=== PATIENT | male | born 1980 | race Caucasian/White ===

== ENCOUNTER → 2016-05-10 | Outpatient (CLI) | payer OTHER ==
--- NOTE | 2016-05-10 21:45 | MR ---
MRI CERVICAL SPINE: CLINICAL HISTORY: Cervical spine radiculopathy, cervicalgia, and neck muscle spasm all per order. Hea daches with neck pain causing tingling in both hands for 4 months per patient. TECHNIQUE: Multiplanar, multisequence imaging of the cervical spine is performed without and with IV contrast, 16 cc of gadolinium was given intravenously. COMPARISON: None. FINDINGS: Sagittal images of the cervical spine show the craniocervical junction to appear within nor mal limits. The cervical and upper thoracic spinal cord is normal in course, caliber, and signal. V ertebral alignment is anatomic. There is mild disc space narrowing C4-C5 level otherwise the vertebr al body and intravertebral disk heights are normal. Posterior disc herniations are seen at C3-C4 and C4-C5 levels on sagittal images. The bone marrow signal intensity is within normal limits. No suspici ous postcontrast enhancement is seen. No significant spurring is noted. Axial images show the C2-C3 level to appear within normal limits. Axial images at C3-C4 level show focal left paracentral disc protrusion effacing anterolateral thecal sac and axial image 39, bilateral neural foramina remain patent. Axial images at C4-C5 level show broad-based posterior disc protrusion mildly effacing anterior theca l sac, there is mild uncovertebral facet degenerative changes bilaterally causing mild left-sided marysol ral foraminal narrowing. Right-sided neural foramen is patent. Axial images at C5-C6, C6-C7, and C7-T1 levels remain within normal limits. IMPRESSION: Multilevel degenerative changes in the upper to mid cervical spine most pronounced at C4- C5 level with further details as noted above.
== END | disposition home or self-care (01) ==
LOC: RADMRIMAIN 19:38
PROVIDERS: ATTEND Family Medicine
DX: M47.22 Other spondylosis with radiculopathy, cervical region (principal)
CPT/HCPCS: 72156; A9577

== ENCOUNTER → 2017-05-22 | Outpatient (CLI) | payer OTHER ==
--- NOTE | 2017-05-22 17:55 | CONS ---
CONSULTATION . DATE OF SERVICE: 05/22/2017 56-year-old gentleman who has been evaluated in the sleep center for episodes of awakening from sleep with dizziness which sometimes continues for many hours and episodes of seeking or falling for several seconds with continuation of his consciousness at that time during the day. The patient had episodes of shaking of 1 leg for 45 minutes, also. HISTORY OF PRESENT ILLNESS SLEEP WAKE EVALUATION: The patient has episodes of increased muscle tone like muscle dystonia 7 times for the last 2 years, but usually that happens during the day, but again he also has some awakenings with the dizziness from sleep. SLEEP SCHEDULE: His sleep schedule on working days from 10 p.m. to 6:15 am and on weekends from roughly around 10 or 11 p.m. to 7:30 or 8 am. FALLING ASLEEP: Sometimes he has problem with falling asleep, although no TV in bedroom. DURING SLEEP: He sleeps on the back or side position with his . According to her, he has soft snoring. He wakes up from sleep up to 4 times and up to 2 episodes of nocturia. Positive history of sleep talking. Sometimes startling movements while falling asleep. No clear out of dream movements during the night. Sometimes he dreams, but no clear history or hypnagogic hallucinations, sleep paralysis. During episodes which I described above, usually the patient muscle tone increases without again losing consciousness. DURING THE DAY/SLEEP WAKE EVALUATION: He had episode of awakening from sleep in the morning, with the dizziness he also who developed seeing darkness with bright lights and then this vision changes gone, but the dizziness continues for many hours. No headaches have been present. PAST MEDICAL HISTORY: Positive for low back problems. MEDICATIONS: None. PAST SURGICAL HISTORY: None. For the last year, the patient has significantly changed his diet and the regimen of his exercise. He lost 50 pounds of weight. During the day he drinks 16 cups a day with goal to maintain his body with enough of water because he thinks that he is losing enough of water during a lot of water during exercise. SOCIAL HISTORY: Negative for smoking. Alcohol consumption occasional. FAMILY HISTORY: Hypertension, arthritis, cancer, acid reflux. PHYSICAL EXAM: gentleman without distress BP 105/56, HR 48, RR 16, height 5 feet 10 inches, weight 173, BMI 24.8, temperature 98.1 oxygen saturation room air 97%. Oropharynx relatively low position of soft palate. Nose: Slight nasal septum deviation with slight restriction of nasal breathing. Slight hyperhidrosis. Neck Supple, no JVD. Thyroid is not palpable. LUNGS Clear to percussion and to auscultation. Good air exchange. No wheezing or rhonchi. HEART S1, S2 regular. No murmurs, gallops, or rubs. ABDOMEN Soft and nontender. Bowel sounds are present. No organomegaly appreciated. EXTREMITIES No clubbing or cyanosis. MAIL CENSOR Awake, alert, and oriented X3. Cranial nerves 2 to 7 intact. There is no fasciculation or atrophy. noted. No focal deficits observed. IMPRESSION: 1. Snoring, multiple awakenings from sleep, sometimes with nocturia, some restriction of nasal breathing. Rule out obstructive sleep apnea-hypopnea syndrome. 2. Episodes of sitting and falling asleep during the day without losing consciousness probably related to increasing muscle tone not clearly related to any stressful events. PLAN: 1. Polysomnography for evaluation of patient breathing during the sleep and also to check for any movements during the night. 2. Multiple sleep latency test if sleep study will be negative for any obstructive sleep apnea or periodic limb movements to check for objective evaluation, sleepiness during the day and to check for any periods of REM sleep while patient falling asleep in naps to rule out cataplexy. 3. Sleep hygiene with regular time for at least 8 hours. 4. No driving if feeling sleepiness. Thank you very much for referring this patient for evaluation. Sincerely, Lakhwinder Warner MD, PhD, FAASM Diplomat of [place] [employer] [place] [employer] Custodial Officer of [facility] [place] MMODL / IJN: [id number] /
== END | disposition home or self-care (01) ==
LOC: SLEEP 15:28
PROVIDERS: ATTEND Internal Medicine
DX: R06.83 Snoring (principal); R35.1 Nocturia; G47.8 Other sleep disorders
CPT/HCPCS: 99211

== ENCOUNTER 2021-06-07 11:35 | Emergency (ER) | payer OTHER ==
[2021-06-07 11:39] VITALS: PULSE 63; RESP 18; TEMP 98
--- NOTE | 2021-06-07 11:59 | ED ---
General Adult HPI - General Chief complaint: Extremity Injury, Lower Stated complaint: Knee injury Time Seen by Provider: 06/07/21 11:50 Source: patient, family, RN notes reviewed, old records reviewed Mode of arrival: wheelchair Limitations: no limitations - History of Present Illness Initial comments: Well-appearing 40-year-old male that presents with complaints of right knee pain since last night. Patient states that he was playing the piano last night and when he got up he twisted the knee and felt a pop. He states that the pain is along the medial aspect of the right knee. He did take Motrin this morning with no relief. He went to his PCP and was given a pain shot in the office and directed to come to the emergency room for evaluation. -: days(s) (1) Location: right, lower extremity (knee) Radiation: non-radiation Severity scale (1-10): 7 Quality: constant Consistency: constant Improves with: immobilization Worsens with: movement Associated Symptoms: denies other symptoms Treatments Prior to Arrival: NSAID (PCP unknown pain shot today) - Related Data Home Medications Medication Instructions Recorded Confirmed Cyanocobalamin (Vitamin B-12) 1,000 mcg PO DAILY 06/07/21 06/07/21 [Vitamin B-12] Ibuprofen [Advil] 400 mg PO Q8HR PRN 06/07/21 06/07/21 Ibuprofen [Motrin Ib] 800 mg PO Q8H PRN 06/07/21 06/07/21 Previous Rx's Medication Instructions Recorded Ibuprofen [Motrin] 800 mg PO Q6HR #30 tab 06/07/21 Allergies Allergy/AdvReac Type Severity Reaction Status Date / Time No Known Allergies Allergy Verified 06/07/21 12:25 Review of Systems ROS Statement: Those systems with pertinent positive or pertinent negative responses have been documented in the HPI. ROS Other: All systems not noted in ROS Statement are negative. Past Medical History Past Medical History: No Reported History History of Any Multi-Drug Resistant Organisms: None Reported Past Surgical History: No Surgical Hx Reported Past Psychological History: No Psychological Hx Reported Smoking Status: Former smoker Past Alcohol Use History: Occasional Past Drug Use History: None Reported General Exam Limitations: no limitations General appearance: alert, in no apparent distress Eye exam: Present: normal appearance Cardiovascular Exam: Present: regular rate Right Upper Leg exam: Present: normal inspection Knee exam: Present: normal inspection, tenderness (MCL), pain/laxity with valgus, full knee extension. Absent: full ROM, swelling, abrasion, laceration, ecchymosis, deformity, crepitus, dislocation, erythema, effusion Lower Leg exam: Present: normal inspection Ankle exam: Present: normal inspection Neurovascular tendon exam: Present: no vascular compromise. Absent: abnormal cap refill, extremity cold to touch Neurological exam: Present: alert, oriented X3 Psychiatric exam: Present: normal affect, normal mood Skin exam: Present: warm, dry, normal color. Absent: cyanosis, diaphoretic Course Vital Signs 06/07/21 11:37 Temperature 98 F Pulse Rate 63 Respiratory 18 Rate O2 Sat by Pulse 99 Oximetry Medical Decision Making - Medical Decision Making 40-year-old male complains of twisting his right knee yesterday when getting up from playing piano. He states he felt a pop. Increased pain with movement. X-ray shows a small suprapatellar joint effusion. No fracture or dislocation noted. On exam patient does have pain with valgus along the MCL. He will be placed in knee immobilizer and follow-up with orthopedics next week. Rest ice and elevate and Motrin as prescribed. Case discussed with Dr. Beltran Disposition Clinical Impression: Knee pain, acute, Internal derangement of knee Disposition: HOME SELF-CARE Condition: Good Instructions (If sedation given, give patient instructions): Knee Pain (ED) Additional Instructions: Rest, ice and elevate the knee. Take Motrin to relieve pain and inflammation. Follow up with orthopedics next week for reevaluation. Return to the emergency room with any new or concerning symptoms including increased pain, inability to bear weight, numbness or tingling. Prescriptions: Ibuprofen [Motrin] 800 mg PO Q6HR #30 tab Is patient prescribed a controlled substance at d/c from ED?: No Referrals: Jennifer Ramirez MD [Primary Care Provider] - 1-2 days William Ceja PAC [PHYSICIAN FICTION AND NONFICTION PROSE WRITER] - 1-2 days Time of Disposition: 12:42
--- NOTE | 2021-06-07 12:21 | XR ---
Right knee HISTORY: Pain 3 views the right knee Bone mineralization, joint spaces and alignment are maintained. Small suprapatellar joint effusion is suspected, there is some mild increased attenuation. IMPRESSION: No fracture or dislocation. Joint effusion. Consider knee MRI as indicated.
== END 2021-06-07 13:08 | disposition home or self-care (01) ==
LOC: EC 11:35
DX: M23.91 Unspecified internal derangement of right knee (principal); Z87.891 Personal history of nicotine dependence
CPT/HCPCS: 73562; 99283; L1830

== ENCOUNTER 2023-07-30 10:11 | Inpatient (IN) | payer MEDICAID, OTHER ==
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
[2023-07-30 12:01] LABS: Basophils % (A) 0 %; Eosinophils # (A) 0.1 k/uL (0-0.7); Eosinophils % (A) 0 %; HCT 49.5 % (39.0-53.0); Lymphocytes % (A) 6 %; MCH 29.9 pg (25.0-35.0); MCHC 32.3 g/dL (31.0-37.0); MCV 92.6 fL (80.0-100.0); Mean Platelet Volume 8.5; Monocytes # (A) 0.5 k/uL (0-1.0); Monocytes % (A) 3 %; Neutrophils # (A) 14.4 k/uL (1.3-7.7); Neutrophils % (A) 90 %; Platelet Count 251 k/uL (150-450); RBC 5.35 m/uL (4.30-5.90); RDW 12.8 % (11.5-15.5)
[2023-07-30 12:08] LABS: Partial Thromboplastin Time 22.2 sec (22.0-30.0); Prothrombin Time 11.3 sec (10.0-12.5)
[2023-07-30 12:15] LABS: ALT 20 U/L (4-49); AST 25 U/L (17-59); Acetaminophen <10.0 ug/mL; African American GFR (CKD) >90 (>60 ml/min/1.73 sqM); Albumin 4.9 g/dL (3.5-5.0); Alkaline Phosphatase 53 U/L (38-126); Anion Gap 10 mmol/L; Blood Urea Nitrogen 21 mg/dL (9-20); Calcium 9.5 mg/dL (8.4-10.2); Carbon Dioxide 26 mmol/L (22-30); Chloride 108 mmol/L (98-107); Glucose 96 mg/dL (74-99); Non-African American GFR(CKD) 88 (>60 ml/min/1.73 sqM); Potassium 4.1 mmol/L (3.5-5.1); Salicylate <1.0 mg/dL; Sodium 144 mmol/L (137-145); Total Bilirubin 2.5 mg/dL (0.2-1.3); Total Protein 7.7 g/dL (6.3-8.2)
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
--- NOTE | 2023-07-30 17:12 | CT ---
EXAMINATION TYPE: CT facial bones wo con CT DLP: 442.9 mGycm, Automated exposure control for dose reduction was used. DATE OF EXAM: 07/30/2023 4:45 PM COMPARISON: 07/30/2023. CLINICAL INDICATION:Male, 42 years old with history of trauma; PHH, trauma to chin. hailee in chin TECHNIQUE: Multiple unenhanced axial CT images were obtained of the facial bones soft tissue and bone windows. Coronal, axial and sagittal reformatted images were also provided in soft tissue and bone windows and submitted for interpretation. Contrast used: mL of , (none if empty) Oral contrast used: (none if empty) FINDINGS: Small subcutaneous hematoma noted measuring 15 mm near the chin. Fat stranding/septations g as No evidence region. The mandible appears intact. The visualized osseous structures and the rest of the exam are intact. The globes and orbits are intact. Soft tissues are otherwise unremarkable. IMPRESSION: No evidence of fracture. There is soft tissue edema/laceration involving the right chin with skin sta ples. Small subcutaneous hematoma noted measuring 15 mm.
[2023-07-30] MEDS ORDERED: MAGNESIUM HYDROXIDE 2,400 MG/30 ML CUP PO PRN (21:15)
[2023-07-30] MEDS ORDERED: ACETAMINOPHEN TAB 325 MG TAB PO PRN (21:15)
[2023-07-30] MEDS ORDERED: MAG HYDROX/AL HYDROX/SIMETH 30 ML CUP PO PRN (21:15)
[2023-07-30] MEDS ORDERED: hydrOXYzine HCL 50 MG/ML 1 ML VIAL IM PRN (21:17)
[2023-07-30] MEDS ORDERED: hydrOXYzine pamoate 25 MG CAP PO PRN (21:17)
[2023-07-31 08:26] LABS: Amphetamine Screen,Urine Not Detected (NotDetected); Barbiturate Screen,Urine Not Detected (NotDetected); Benzodiazepines Screen,Urine Not Detected (NotDetected); Cocaine Screen,Urine Not Detected (NotDetected); Methadone Screen, Urine Not Detected (NotDetected); Opiate Screen,Urine Not Detected (NotDetected); Oxycodone Screen, Urine Not Detected (NotDetected); Phencyclidine Screen,Urine Not Detected (NotDetected); Tricyclic Antidepressant,Urine Not Detected (NotDetected); Urn Cannabinoid Scrn Detected (NotDetected)
[2023-07-31] MEDS: IBUPROFEN 600 MG TAB PO PRN (08:29)
[2023-07-31] MEDS: NICOTINE 14MG/24HR PATCH TRANSDERM SCH (08:30)
--- NOTE | 2023-07-31 16:10 | P.MDCNMH ---
History of Present Illness H&P Date: 07/31/23 This is a pleasant 42-year-old male who presented to the emergency department with suicidal attempt and suicidal ideations. Patient reports he attempted to hang himself and denies any other previous suicidal attempts. Patient follows with Dr. Jennifer Abraham in the outpatient setting with no significant past medical history, admits to smoking occasionally, occasionally uses alcohol socially and has used marijuana. Patient per medical record had recently used mushrooms and reports on exam that he has given everything up on Friday. Patient was noted to have significant erythema with abrasion around the neck from the tie that he attempted to hang himself with as well as significant hem atoma on the chin with a laceration requiring 3 hailee. Patient is having some jaw pain and tenderness with opening his mouth making it difficult to eat. Patient reports he woke up on the ground unsure of what was going on and what had happened. Patient did undergo a brain CT showing no acute process, angio CT showing no evidence of dissection of the cervical internal carotid arteries or vertebral arteries or any significant stenosis at the bifurcations. No evidence of intracranial high-grade stenosis or intracranial aneurysm. Patient also had a facial CT done in the ER showing no evidence of fracture with some soft tissue edema and laceration involving the right rain with skin hailee and small subcutaneous hematoma measuring 15 mm. REVIEW OF SYSTEMS: CONSTITUTIONAL: No fever, no malaise, no fatigue. HEENT: No recent visual problems or hearing problems. Denied any sore throat. CARDIOVASCULAR: No chest pain, orthopnea, PND, no palpitations, no syncope. PULMONARY: No shortness of breath, no cough, no hemoptysis. GASTROINTESTINAL: No diarrhea, no nausea, no vomiting, no abdominal pain. NEUROLOGICAL: No headaches, no weakness, no numbness. HEMATOLOGICAL: Denies any bleeding or petechiae. GENITOURINARY: Denies any burning micturition, frequency, or urgency. MUSCULOSKELETAL/RHEUMATOLOGICAL: Denies any joint pain, swelling, or any muscle pain. ENDOCRINE: Denies any polyuria or polydipsia. SKIN: Reports significant bruising and swelling of the chin The rest of the 14-point review of systems is negative. PHYSICAL EXAMINATION: GENERAL: The patient is alert and oriented x3, not in any acute distress. Well developed, well nourished. HEENT: Pupils are round and equally reacting to light. EOMI. No scleral icterus. No conjunctival pallor. Normocephalic, atraumatic. No pharyngeal erythema. No thyromegaly. CARDIOVASCULAR: S1 and S2 present. No murmurs, rubs, or gallops. PULMONARY: Chest is clear to auscultation, no wheezing or crackles. ABDOMEN: Soft, nontender, nondistended, normoactive bowel sounds. No palpable organomegaly. MUSCULOSKELETAL: No joint swelling or deformity. EXTREMITIES: No cyanosis, clubbing, or pedal edema. NEUROLOGICAL: Gross neurological examination did not reveal any focal deficits. SKIN: No rashes. Hematoma noted of the chin, 3 hailee noted underneath the chin from a laceration due to the fall, redness and abrasion noted around the neck Assessment: Suicidal ideation with suicidal attempt Attempted hanging, unsuccessful Hematoma with laceration noted on the chin with 3 hailee placed in the ER on 07/30/2023 Depression Continue nicotine use THC use, mushroom use Full code Plan: Patient was brought to the ER for suicidal ideation with suicidal attempt and attempted to hang himself with a neck tie and woke up on the floor. Patient suffered a fall with a large hematoma noted on his chin with multiple images not ing swelling and hematoma with no fractures Continue soft foods and Ensure supplements as he continues to have jaw pain Encouraged group therapy compliance and medication compliance Awaiting evaluation by psychiatry The impression and plan of care has been dictated by Hodan Vasques, Nurse Practitioner as directed. Dr. Sanjay MD I have performed a history and examination and MDM of this patient, discussed the same with the dictator, and agree with the dictator's assessment and plan as written ,documented as a scribe. Based on total visit time, I have performed more than 50% of the visit. Past Medical History Past Medical History: No Reported History History of Any Multi-Drug Resistant Organisms: None Reported Past Surgical History: No Surgical Hx Reported Past Anesthesia/Blood Transfusion Reactions: No Reported Reaction Smoking Status: Light tobacco smoker - Past Family History Father Family Medical History: Unable to Obtain Mother Family Medical History: Unable to Obtain Medications and Allergies Home Medications Medication Instructions Recorded Confirmed Type No Known Home Medications 07/30/23 07/30/23 History Allergies Allergy/AdvReac Type Severity Reaction Status Date / Time No Known Allergies Allergy Verified 07/30/23 16:54 Physical Exam Vitals: Vital Signs Temp Pulse Pulse Resp BP BP Pulse Ox 07/31/23 07:14 98.0 F 72 18 106/58 98 07/30/23 22:44 98.2 F 59 L 18 121/71 98 07/30/23 10:17 98.7 F 66 18 106/74 97 Intake and Output 07/30/23 07/31/23 07/31/23 22:59 06:59 14:59 Other: Weight 79.01 kg Cranial Nerve Examination - Cranial Nerves Cranial Nerve I- Olfactory: Intact Cranial Nerve II- Optic: Intact Cranial Nerve III- Oculomotor: Intact Cranial Nerve IV- Trochlear: Intact Cranial Nerve V- Trigeminal: Intact Cranial Nerve - Abducens: Intact Cranial Nerve VII- Facial: Intact Cranial Nerve VIII- Auditory: Intact Cranial Nerve IX- Glossopharyngeal: Intact Cranial Nerve X- Vagus: Intact Cranial Nerve XI- Accessory: Intact Cranial Nerve XII- Hypoglossal: Intact Results CBC & Chem 7: 07/30/23 11:48 07/30/23 11:48 Labs: Abnormal Lab Results - Last 24 Hours (Table) 07/30/23 07/30/23 07/31/23 Range/Units 11:48 11:48 08:00 WBC 16.0 H (3.8-10.6) k/uL Neutrophils # 14.4 H (1.3-7.7) k/uL Chloride 108 H (98-107) mmol/L BUN 21 H (9-20) mg/dL Total Bilirubin 2.5 H (0.2-1.3) mg/dL U Marijuana (THC) Screen Detected H (NotDetected) Assessment and Plan Time with Patient: Less than 30
[2023-07-31 19:28] LABS: LDL Cholesterol,Calculated 92.5 mg/dL (0.0-131.0); VLDL Calculation 17.54 mg/dL (5.00-40.00)
--- NOTE | 2023-07-31 21:02 | P.HP ---
Psychiatric H&P - . H&P Date: 07/31/23 History & Physical: Allergies Allergy/AdvReac Type Severity Reaction Status Date / Time No Known Allergies Allergy Verified 07/30/23 16:54 Vital Signs Temp 98.0 F 07/31/23 07:14 Pulse 72 07/31/23 07:14 Resp 18 07/31/23 07:14 BP 106/58 07/31/23 07:14 Pulse Ox 98 07/31/23 07:14 FiO2 Intake & Output 07/31/23 07/31/23 08/01/23 06:59 18:59 06:59 Weight 79.01 kg Laboratory Last Values WBC 16.0 k/uL (3.8-10.6) H 07/30/23 11:48 RBC 5.35 m/uL (4.30-5.90) 07/30/23 11:48 Hgb 16.0 gm/dL (13.0-17.5) 07/30/23 11:48 Hct 49.5 % (39.0-53.0) 07/30/23 11:48 MCV 92.6 fL (80.0-100.0) 07/30/23 11:48 MCH 29.9 pg (25.0-35.0) 07/30/23 11:48 MCHC 32.3 g/dL (31.0-37.0) 07/30/23 11:48 RDW 12.8 % (11.5-15.5) 07/30/23 11:48 Plt Count 251 k/uL (150-450) 07/30/23 11:48 MPV 8.5 07/30/23 11:48 Neutrophils % 90 % 07/30/23 11:48 Lymphocytes % 6 % 07/30/23 11:48 Monocytes % 3 % 07/30/23 11:48 Eosinophils % 0 % 07/30/23 11:48 Basophils % 0 % 07/30/23 11:48 Neutrophils # 14.4 k/uL (1.3-7.7) H 07/30/23 11:48 Lymphocytes # 1.0 k/uL (1.0-4.8) 07/30/23 11:48 Monocytes # 0.5 k/uL (0-1.0) 07/30/23 11:48 Eosinophils # 0.1 k/uL (0-0.7) 07/30/23 11:48 Basophils # 0.0 k/uL (0-0.2) 07/30/23 11:48 PT 11.3 sec (10.0-12.5) 07/30/23 11:48 INR 1.0 (<1.2) 07/30/23 11:48 APTT 22.2 sec (22.0-30.0) 07/30/23 11:48 Sodium 144 mmol/L (137-145) 07/30/23 11:48 Potassium 4.1 mmol/L (3.5-5.1) 07/30/23 11:48 Chloride 108 mmol/L (98-107) H 07/30/23 11:48 Carbon Dioxide 26 mmol/L (22-30) 07/30/23 11:48 Anion Gap 10 mmol/L 07/30/23 11:48 BUN 21 mg/dL (9-20) H 07/30/23 11:48 Creatinine 1.06 mg/dL (0.66-1.25) 07/30/23 11:48 Est GFR (CKD-EPI)AfAm >90 (>60 ml/min/1.73 sqM) 07/30/23 11:48 Est GFR (CKD-EPI)NonAf 88 (>60 ml/min/1.73 sqM) 07/30/23 11:48 Glucose 96 mg/dL (74-99) 07/30/23 11:[address] Glu mg/dL 108 mg/dL 07/31/23 04:55 Hemoglobin A1c 5.4 % (<=6.0) 07/31/23 04:55 Calcium 9.5 mg/dL (8.4-10.2) 07/30/23 11:48 Total Bilirubin 2.5 mg/dL (0.2-1.3) H 07/30/23 11:48 AST 25 U/L (17-59) 07/30/23 11:48 ALT 20 U/L (4-49) 07/30/23 11:48 Alkaline Phosphatase 53 U/L (38-126) 07/30/23 11:48 Total Protein 7.7 g/dL (6.3-8.2) 07/30/23 11:48 Albumin 4.9 g/dL (3.5-5.0) 07/30/23 11:48 Triglycerides 87.70 mg/dL (0.00-149.00) 07/31/23 12:06 Cholesterol 165.00 mg/dL (0.00-200.00) 07/31/23 12:06 LDL Cholesterol, Calc 92.5 mg/dL (0.0-131.0) 07/31/23 12:06 VLDL Cholesterol, Calc 17.54 mg/dL (5.00-40.00) 07/31/23 12:06 HDL Cholesterol 55.00 mg/dL (40.00-60.00) 07/31/23 12:06 Cholesterol/HDL Ratio 3.00 Ratio 07/31/23 12:06 TSH 0.711 mIU/L (0.465-4.680) 07/31/23 04:55 Salicylates <1.0 mg/dL 07/30/23 11:48 Urine Opiates Screen Not Detected (NotDetected) 07/31/23 08:00 Ur Oxycodone Screen Not Detected (NotDetected) 07/31/23 08:00 Urine Methadone Screen Not Detected (NotDetected) 07/31/23 08:00 Acetaminophen <10.0 ug/mL 07/30/23 11:48 Ur Barbiturates Screen Not Detected (NotDetected) 07/31/23 08:00 U Tricyclic Antidepress Not Detected (NotDetected) 07/31/23 08:00 Ur Phencyclidine Scrn Not Detected (NotDetected) 07/31/23 08:00 Ur Amphetamines Screen Not Detected (NotDetected) 07/31/23 08:00 U Methamphetamines Scrn Not Detected (NotDetected) 07/31/23 08:00 U Benzodiazepines Scrn Not Detected (NotDetected) 07/31/23 08:00 Urine Cocaine Screen Not Detected (NotDetected) 07/31/23 08:00 U Marijuana (THC) Screen Detected (NotDetected) H 07/31/23 08:00 SARS-CoV-2 (PCR) Not Detected (Not Detectd) 07/30/23 20:17 07/31/23 21:00 Psychiatric Evaluation Identifying Data: Mr. aMrk is 42 years old, , WM, who lives in [place], [place] with his and two step daughters. Chief Complaint: Lack of love. History of Psychiatric Illness- Current psychiatric History: The patient noted that, I lack love from my mother and father and I have been chasing it all my life. The patient noted his mother called him yesterday and it did not go too well leading to him being very depressed with thoughts hurting himself. He got a neck tie and roped it around a steal beam to hang himself. However, he had some ambivalence toward this act so he got a knife with him to cut the tie if it becomes miserable. He followed through act and first got weak in right leg and then he went down on both knees, at this point he passed out and fell and sustained injuries to chin and jaw. The patient noted it was me or God, who cut the tie. The patient is very happy that it happened this way because God had plan to keep him alive and he cut the tie. The patient noted that he has never had these thoughts in the past. He denied any past episode of depression. He was never told by his , relatives or friends that looked depressed. The noted that once he to seek a counselor to sort out thing and not for depression and mental illness and did not get any call back, so he dropped the idea. Past Psychiatric History: None. Past Medication History: None On leading questions: The patient denied Depression and Anxiety. Denied SI or HI. Denied symptoms consistent with psychosis Drugs and alcohol history: The patient Vapes Marijuana twice a week. THC amount is 84% per vape. Tobacco use: Smoke Cigar. One per day. Past Medical history: None. Family History of Psychiatric Disorder: The patient denied. No h/o suicide or homicide. Social History and Family History: The pa was born and raised in [place], [place]. He grew-up with two siblings. He dropped out of 12 grades. 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 OTC: Lions mireille (Mushroom), Krill pills, Vitamins Allergies: None Objective: MSE: Alert and attentive. Orientation times three Dressed and Groomed: Appropriately. Pleasant and cooperative. Psychomotor Activity: Normal. Speech: Normal in tone, quality, and quantity. Mood: Good. Affect: Appropriate to the mood. SI or HI: None. Perceptual disturbance: None. Thought Content: No paranoia or other delusional thinking noted. Thought Process: Normal. Cognition: Intact Judgment and Insight: Good AIMS: Normal Labs: Reviewed labs. Diagnosis: Adjustment Disorder with emotional disturbance Suicide attempt. Plan and Recommendations: Continue current Medications. Monitor MS and side effects of medications and adjust medications accordingly. Provide supportive psychotherapy and psychoeducation. The patient provided Substance abuse counseling. Smoke cessation therapy. The patient to attend booth [facility]. CBC with Diff, CMP, TSH, Lipid Profile, HbA1c, EKG, Medication Consent with explanation of risk/benefits and side effects: Explained and obtained.
[2023-08-01 02:08] LABS: Appearance,Urine Clear (Clear); Bilirubin,Urine Negative (Negative); Blood,Urine Negative (Negative); Color,Urine Light Yellow; Glucose,Urine (UA) Negative (Negative); Ketones,Urine 2+ (Negative); Leukocyte Esterase,Urine Negative (Negative); Nitrite,Urine Negative (Negative); PH, Urine 5.5 (5.0-8.0); Protein,Urine Negative (Negative); Specific Gravity,Urine 1.015 (1.001-1.035); Urobilinogen,Urine <2.0 mg/dL (<2.0)
--- NOTE | 2023-08-01 14:13 | P.PN ---
Progress Note - Text Progress Note Date: 08/01/23 In-Patient Follow-up Chief Complaint: I am doing good Subjective: The patient noted that he has been doing well. He has been attending groups and interacting with peer well. The noted that he feels very enlightened. He stated, life is very different, it is a blessing, enlighten. The patients feels that the is very supportive of patient and wants him home as soon as possible. Leading questions: The patient denied Depression and Anxiety. Denied SI or HI. Denied symptoms consistent with psychosis Sleep and Appetite: good Interim History: Behavioral Changes: PRN meds/isolation/restraints/ change in status: None Change in medical condition: No change. Change in medications: No change. Side effects from Medications: None. Objective- MSE: Alert and attentive. Orientation times three. Dressed and Groomed: Appropriately. Pleasant and cooperative. Psychomotor Activity: Normal. Speech: Normal in tone, quality, and quantity. Mood: Good. Affect: Consistent with mood. SI or HI: None. Perceptual disturbance: None. Thought Content: No paranoia or other delusional thinking noted. Thought Process: Normal. Cognition: Intact Judgment and Insight: Fair AIMS: Normal. Labs: Reviewed with patients. Diagnosis: No change. Plan and recommendation: Continue current medications. Monitor MS and side effects of medications and adjust medications accordingly. Provide supportive psychotherapy. The patient provided psychoeducation. The patient provided Substance abuse counseling. Smoke cessation therapy. The patient to continue attending the booth activities. Medication Consent with explanation of risk/benefits and side effects: Explained and obtained.
--- NOTE | 2023-08-02 11:03 | P.PN ---
Subjective Progress Note Date: 08/02/23 Patient Name: Jose M Mark Date of : 84 Patient Status: Inpatient Attending Provider: Perico Ren Date: 08/02/23 Initialization Date: 08/01/23 14:12 Subjective data: Patient reports that he is doing very well He states that he was very ananth that he was not in the God's plan to have him He states that he tried to hang himself and luckily he decided to change his mind He reports that he currently works as a human resources project manager and lives with his and children He states that he was on the path of self-exploration where he decided to try some magic mushrooms and some psychedelic drugs and that did seem to have skewed his thinking He states that he has no intention of experimenting with any of these drugs again The noted that he feels very enlightened. He stated, life is very different, it is a blessing, enlighten. The patients feels that the is very supportive of patient and wants him home as soon as possible. Leading questions: The patient denied Depression and Anxiety. Denied SI or HI. Denied symptoms consistent with psychosis Sleep and Appetite: good Interim History: Behavioral Changes: PRN meds/isolation/restraints/ change in status: None Change in medical condition: No change. Change in medications: No change. However is currently not taking any antidepressants except for hydroxyzine as needed Side effects from Medications: None. Objective- MSE: Alert and attentive. Orientation times three. Dressed and Groomed: Appropriately. Pleasant and cooperative. Psychomotor Activity: Normal. Speech: Normal in tone, quality, and quantity. Mood: Good. Affect: Consistent with mood. SI or HI: None. Perceptual disturbance: None. Thought Content: No paranoia or other delusional thinking noted. Thought Process: Normal. Cognition: Intact Judgment and Insight: Fair AIMS: Normal. Labs: Reviewed with patients. Diagnosis: No change. Plan and recommendation: Continue current medications. Monitor MS and side effects of medications and adjust medications accordingly. Provide supportive psychotherapy. The patient provided psychoeducation. The patient provided Substance abuse counseling. Smoke cessation therapy. The patient to continue attending the booth activities. Medication Consent with explanation of risk/benefits and side effects: Explained and obtained. Joshua Rojas MD Objective - Vital Signs Vital signs: Vital Signs Temp 98.0 F 08/02/23 06:55 Pulse 57 L 08/02/23 06:55 Resp 18 08/02/23 06:55 BP 103/65 08/02/23 06:55 Pulse Ox 99 08/02/23 06:55 FiO2 - Labs CBC & Chem 7: 07/30/23 11:48 07/30/23 11:48
[2023-08-02] MEDS: AMOXIC-POT CLAV 875-125MG 1 EACH TAB PO SCH (16:41)
[2023-08-02] MEDS: LIDOCAINE VISCOUS 2% 15 ML CUP PO SCH (20:41)
--- NOTE | 2023-08-02 21:11 | PN ---
PROGRESS NOTE DATE OF SERVICE: 08/02/2023 SUBJECTIVE: This is a 42-year-old gentleman who was admitted after suicidal attempts, is complaining of laceration of inside of the buccal mucosa and some pain which is affecting even the p.o. intake. No chest pain, no palpitation. OBJECTIVE: VITAL SIGNS: Pulse is 73, blood pressure 102/50, and respirations 18. CHEST: Clear to auscultation. CARDIOVASCULAR: S1, S2. ABDOMEN: Soft. HEENT: Buccal mucosal tear infected. LABS: ntd ASSESSMENT: 1. Suicidal ideation with suicidal attempt. 2. Buccal mucosal tear with possible infection. 3. Attempted to hanging unsuccessful. 4. Internal laceration on the chin. 5. Depression. 6. Elevated WBC. RECOMMENDATIONS AND DISCUSSION: Recommended to continue current management, continue symptomatic treatment. Recommend short course of empiric antibiotics and also local cool solution. I would also recommend repeat CBC to ensure normalcy. Resume the rest of the medications per Psychiatry. Please call if the patient is not feeling better. POLINA / IJN: [id number] / POONAM
[2023-08-03 08:43] LABS: Basophils % (A) 1 %; Eosinophils # (A) 0.2 k/uL (0-0.7); Eosinophils % (A) 3 %; HCT 46.9 % (39.0-53.0); HGB 15.2 gm/dL (13.0-17.5); Lymphocytes # (A) 1.5 k/uL (1.0-4.8); Lymphocytes % (A) 22 %; MCH 30.4 pg (25.0-35.0); MCHC 32.4 g/dL (31.0-37.0); MCV 93.9 fL (80.0-100.0); Monocytes # (A) 0.4 k/uL (0-1.0); Monocytes % (A) 5 %; Neutrophils # (A) 4.7 k/uL (1.3-7.7); Neutrophils % (A) 68 %; Platelet Count 232 k/uL (150-450); RDW 12.8 % (11.5-15.5)
--- NOTE | 2023-08-03 11:53 | P.PN ---
Subjective Progress Note Date: 08/03/23 Patient Name: Jose M Mark Date of : 84 Patient Status: Inpatient Attending Provider: Perico Ren Date: 08/03/23 Initialization Date: 08/01/23 14:12 Subjective data: Patient reports that he is doing very well patient maintains that he has had no problems or issues he stated that his sleeping and eating well Reports that he's taking the medications only as a when necessary and that the this problem was more related to drug experimentation and that he does not have any chronic medical issues He has no complaints or issues at this time The noted that he feels very enlightened. He stated, life is very different, it is a blessing, enlighten. The patients feels that the is very supportive of patient and wants him home as soon as possible. Leading questions: The patient denied Depression and Anxiety. Denied SI or HI. Denied symptoms consistent with psychosis Sleep and Appetite: good Interim History: Behavioral Changes: PRN meds/isolation/restraints/ change in status: None Change in medical condition: No change. Change in medications: No change. However is currently not taking any antidepressants except for hydroxyzine as needed Side effects from Medications: None. Objective- MSE: Alert and attentive. Orientation times three. Dressed and Groomed: Appropriately. Pleasant and cooperative. Psychomotor Activity: Normal. Speech: Normal in tone, quality, and quantity. Mood: Good. Affect: Consistent with mood. SI or HI: None. Perceptual disturbance: None. Thought Content: No paranoia or other delusional thinking noted. Thought Process: Normal. Cognition: Intact Judgment and Insight: Fair AIMS: Normal. Labs: Reviewed with patients. 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 Monitor MS and side effects of medications and adjust medications accordingly. Provide supportive psychotherapy. The patient provided psychoeducation. The patient provided Substance abuse counseling. Smoke cessation therapy. The patient to continue attending the booth activities. Medication Consent with explanation of risk/benefits and side effects: Explained and obtained. Joshua Rojas MD Active Medications Generic Name Dose Route Start Last Admin Trade Name Freq PRN Reason Stop Dose Admin Acetaminophen 650 mg 07/30/23 21:15 Acetaminophen Tab 325 Mg Tab PO Q4HR PRN Mild Pain (Scale 1 to 3) Al Hydroxide/Mg Hydroxide 30 ml 07/30/23 21:15 Mag Hydrox/Al Hydrox/Simeth 30 Ml Cup PO Q4HR PRN GI Upset Amoxicillin/Clavulanate Potassium 1 each 08/02/23 15:29 08/03/23 09:20 Amoxic-Pot Clav 875-125mg 1 Each Tab PO 1 each Q12HR CROW Administration Protocol Hydroxyzine HCl 25 mg 07/30/23 21:17 Hydroxyzine Hcl 50 Mg/Ml 1 Ml Vial IM QID PRN Agitation or Acute Anxiety Hydroxyzine Pamoate 25 mg 07/30/23 21:17 Hydroxyzine Pamoate 25 Mg Cap PO QID PRN Agitation or Acute Anxiety Ibuprofen 600 mg 07/30/23 21:15 07/31/23 20:27 Ibuprofen 600 Mg Tab PO 600 mg Q6HR PRN Administration Moderate Pain (Scale 4 to 6) Lidocaine HCl 5 ml 08/02/23 21:00 08/03/23 09:20 Lidocaine Viscous 2% 15 Ml Cup PO 5 ml BID CROW Administration Magnesium Hydroxide 2,400 mg 07/30/23 21:15 Magnesium Hydroxide 2,400 Mg/30 Ml Cup PO DAILY PRN Constipation Objective - Vital Signs Vital signs: Vital Signs Temp 98.0 F 08/02/23 06:55 Pulse 70 08/03/23 09:22 Resp 18 08/02/23 06:55 BP 121/78 08/03/23 09:22 Pulse Ox 99 08/02/23 06:55 FiO2 - Labs CBC & Chem 7: 08/03/23 07:43 07/30/23 11:48
[2023-08-04 06:21] VITALS: BP 118/72; PULSE 58; RESP 16; TEMP 98.1
--- NOTE | 2023-08-04 21:56 | P.DS ---
Providers Date of admission: 07/30/23 21:09 Expected date of discharge: 08/04/23 Attending physician: Perico Ren MD Consults: 07/30/23 21:15 Consult Physician Routine Consulting Provider: Andreina Abraham Consult Reason/Comments: h&p Do you want consulting provider notified?: Yes Primary care physician: Jennifer Ramirez - Discharge Diagnosis(es) (1) Adjustment disorder with emotional disturbance Status: Acute Priority: High Hospital Course: Discharge Summary HPI: Identifying Data: Mr. Mark is 42 years old, , WM, who lives in [place], [place] with his and two step daughters. Chief Complaint: Lack of love. History of Psychiatric Illness- The patient noted that, I lack love from my mother and father and I have been chasing it all my life. The patient noted his mother called him yesterday and it did not go too well leading to him being very depressed with thoughts hurting himself. He got a neck tie and roped it around a steal beam to hang himself. However, he had some ambivalence toward this act so he got a knife with him to cut the tie if it becomes miserable. He followed through act and first got weak in right leg and then he went down on both knees, at this point he passed out and fell and sustained injuries to chin and jaw. The patient noted it was me or God, who cut the tie. The patient is very happy that it happened this way because God had plan to keep him alive and he cut the tie. The patient noted that he has never had these thoughts in the past. He denied any past episode of depression. He was never told by his , relatives or friends that looked depressed. The noted that once he to seek a counselor to sort out thing and not for depression and mental illness and did not get any call back, so he dropped the idea. Past Psychiatric History: None. Past Medication History: None On leading questions: The patient denied Depression and Anxiety. Denied SI or HI. Denied symptoms consistent with psychosis Hospital Course: After admission the patient was provide booth milieu and supportive psychotherapy. The patient was not placed any psychotropic medications because the time patient came to ER, he denied any suicidal ideations of homicidal ideations. He did not admit to being depressed or spontaneously or during sessions expressed any depressive symptomatology. He always appeared in good spirits. He attended all the booth activities and inter acted well with peers and staff. The healthcare social worker talked to the , who stated that patient never expressed any depression or SI. She felt that the patient does not need therapy or any medications. She felt that patient can come home and will pick him up. The patient did agree to go to out-pt follow. His stay was uneventful. He was considered to be stable and was discharged on 08/04/2023 to home with appointment with [facility]. MSE: Alert and attentive. Orientation times three Dressed and Groomed: Appropriately. Pleasant and cooperative. Psychomotor Activity: Normal. Speech: Normal in tone, quality, and quantity. Mood: Good. Affect: Appropriate to the mood. SI or HI: None. Perceptual disturbance: None. Thought Content: No paranoia or other delusional thinking noted. Thought Process: Normal. Cognition: Intact Judgment and Insight: Good Diagnosis: Adjustment Disorder with emotional disturbance Suicide attempt. Plan: The patient to be discharged today. The patient has attained good improvement since admission. He is stable to be followed as an outpatient. The patient is not suicidal or Homicidal. He does not pose any harm to self or others. The patient remains at a greater risk of self-harm or harm to others than general population on a chronic basis due to psychiatric illness and substance abuse. The patient will continue taking following medication post discharge. The importance of medication compliance and maintaining regular appointments at psychiatric out-pt and PCP clinic was explained and encouraged. The patient was also advised to seek alcohol counseling and attend AA meetings. The understood and agreed with the recommendations. exhaust worker to arrange for and conduct family meeting to ensure safety upon discharge and answer any questions. The healthcare social worker to arrange for patients follow-up appointments at [facility] for psychiatric care along with follow-up with PCP. The patient provided psychoeducation. Advised to call 911 or go to nearest ED or call this hospital in case of acute worsening of symptomatology, severe side effects or having suicidal, homicidal thoughts and feeling unsafe at home. Patient Condition at Discharge: Stable Plan - Discharge Summary Discharge Rx Participant: Yes New Discharge Prescriptions: New Amoxic-Pot Clav 875-125Mg [Augmentin 875-125] 1 each PO Q12HR 10 Days #10 tab Discharge Medication List Amoxic-Pot Clav 875-125Mg [Augmentin 875-125] 1 each PO Q12HR 10 Days #10 tab 05/13/24 [Rx] Follow up Appointment(s)/Referral(s): [facility]Outside[facility] - 08/13/23 12:30 pm ([facility]) Jennifer Ramirez MD [Primary Care Provider] - 1-2 days Patient Instructions/Handouts: Mood Disorders (DC), Brief Psychotic Disorder (GEN) Activity/Diet/Wound Care/Special Instructions: Avoid the use of street drugs and alcohol. Take all medications as prescribed. When you are in need of refills on your medications, please contact your medical provider and/or outpatient psychiatrist/provider to have this done. Please go to your scheduled outpatient appointment for aftercare treatment. If symptoms return or become worse, call the crisis line at and/or go to the nearest emergency room for evaluation. National Suicide Hotline 985 Discharge Disposition: HOME SELF-CARE
== END 2023-08-04 14:30 | disposition home or self-care (01) | DRG 754 ==
LOC: EC 10:11 → 3MHU 21:09
PROVIDERS: ADMIT Psychiatry & Neurology Psychiatry; ATTEND Psychiatry & Neurology Psychiatry
DX: F43.21 Adjustment disorder with depressed mood (principal); F17.200 Nicotine dependence, unspecified, uncomplicated; F43.29 Adjustment disorder with other symptoms; S01.81XA Laceration without foreign body of other part of head, initial encounter; T71.162A Asphyxiation due to hanging, intentional self-harm, initial encounter
CPT/HCPCS: 12011; 36415; 70450; 70486; 70496; 70498; 80053; 80061; 80143; 80179; 80306; 81003; 82075; 83036; 84443; 85025; 85610; 85730; 87635; 93005; 99291